=== PATIENT | male | born 1940 | race Caucasian/White ===

== ENCOUNTER 2016-10-20 10:58 | Inpatient (IN) | payer MEDICARE, BC ==
[~2016-10-20] VITALS: Ht 182.9 cm; Wt 120.0 kg
[2016-10-20] VITALS (7 sets, daily range): BP systolic 133–174; BP diastolic 75–108; PULSE 68–83; RESP 15–26; TEMP 97.6–97.9; O2SAT 96–98
[~2016-10-20 10:58] MED LIST: ALBU6.7H INH; AMLO2.5T PO; ASPI81TA82 PO; ATEN-102 PO; COUM7.5T PO; CYCL-36 PO; DIAZ5 PO; FELO10TA PO; FINA5TAB77 PO; LISI-357 PO; SIMV40TA PO; TERA5 PO; TEST-25 IM
[2016-10-20 11:39] LABS: AUTOMATED NEUTROPHIL # 10.2 TH/MM3 (1.8-7.7); BASOPHIL # 0.1 TH/MM3 (0-0.2); BASOPHIL % 0.5 % (0.0-2.0); EOSINOPHIL # 0.2 TH/MM3 (0-0.4); EOSINOPHIL % 1.8 % (0.0-4.0); HEMATOCRIT 48.8 % (39.0-51.0); HEMO FLAGS DIFF FINAL; LYMPH % 11.8 % (9.0-44.0); LYMPHOCYTE # 1.5 TH/MM3 (1.0-4.8); MEAN CELL VOLUME 86.7 FL (80.0-100.0); MEAN CORPUSCULAR HEMOGLOBIN 29.3 PG (27.0-34.0); MEAN CORPUSCULAR HGB CONC 33.8 % (32.0-36.0); MONO % 8.2 % (0.0-8.0); NEUT % 77.7 % (16.0-70.0); PLATELET COUNT 160 TH/MM3 (150-450); RED BLOOD COUNT 5.63 MIL/MM3 (4.50-5.90); RED CELL DISTRIBUTION WIDTH 15.6 % (11.6-17.2); WHITE BLOOD COUNT 13.1 TH/MM3 (4.0-11.0)
[2016-10-20 11:48] LABS: APTT (PATIENT) 37.8 SEC (24.3-30.1); INTERNATIONAL NORMALIZED RATIO 2.1 RATIO; PROTHROMBIN TIME - PATIENT 24.1 SEC (9.8-11.6)
[2016-10-20 12:08] LABS: ANION GAP 8 MEQ/L (5-15); BICARBONATE 28.2 MEQ/L (21.0-32.0); BLOOD UREA NITROGEN 21 MG/DL (7-18); CHLORIDE 106 MEQ/L (98-107); GLOMERULAR FILTRATION RATE 32 ML/MIN (>89); POTASSIUM 3.7 MEQ/L (3.5-5.1); SODIUM (NA) 142 MEQ/L (136-145)
[2016-10-20 12:12] LABS: CREATINE KINASE 56 U/L (39-308)
--- NOTE | 2016-10-20 12:32 | PD ---
HPI Chief Complaint: Chest Pain Time Seen by Provider: 12:28 Travel History International Travel<30 days: No Contact w/Intl Traveler<30days: No Traveled to known affect area: No History of Present Illness HPI 76-year-old male with history of CAD with stents, CHF, A. fib, currently in cardiac rehabilitation with Dr. Leija, presents to the ER today for right sided and substernal chest pain starting yesterday, with radiation down to the left arm, and patient's states that he has been having some dyspnea on exertion for several days. They had gone to cardiac rehabilitation today and told the staff about the symptoms and was told to come to the ER. He denies any abdominal pains, nausea, vomiting, or other symptoms. also states patient has had a 5 pound weight gain recently. Modifying Factors: None Associated Signs & Symptoms: Shortness of breath, dyspnea on exertion, chest pain Risk Factors: CHF PFSH Past Medical History Arthritis: Yes Asthma: Yes Atrial Fibrillation: Yes Autoimmune Disease: No Heart Rhythm Problems: Yes (AFIB ) Cancer: No Cardiac Catheterization: No High Cholesterol: Yes Chemotherapy: No Chest Pain: Yes COPD: Yes Diabetes: No GERD: Yes Hypertension: Yes Implanted Vascular Access Dvce: Yes Psychiatric: No Reproductive: No Respiratory: Yes (BENIGN MASS IN LUNG PER PT.) Radiation Therapy: No Sleep Apnea: Yes Thyroid Disease: No Past Surgical History Abdominal Surgery: Yes (STOMACH FOR REFLUX) Body Medical Devices: STENTS Cholecystectomy: No Genitourinary Surgery: Yes (KIDNEY REMOVED FROM LEFT SIDE ) Neurologic Surgery: Yes (CATARACTS REMOVED ) Tonsillectomy: No Social History Alcohol Use: Yes (1 DRINK A MONTH) Tobacco Use: No Substance Use: No Allergies-Medications (Allergen,Severity, Reaction): Coded Allergies: Dilaudid (Verified Allergy, Severe, vomit, 10/20/16) Erythrocin (Verified Adverse Reaction, Unknown, NAUSEA, 10/20/16) Percodan (Verified Adverse Reaction, Unknown, NAUSEA, 10/20/16) Talwin (Verified Adverse Reaction, Unknown, NAUSEA, 10/20/16) Reported Meds & Prescriptions Reported Meds & Active Scripts Active Reported Nitroglycerin SL (Nitroglycerin) 0.4 Mg Subl 0.4 Mg SL DIRECTED PRN ONE TABLET UNDER THE TONGUE NEEDED FOR CHEST PAIN, MAY REPEAT EVERY FIVE MINUTES FOR A TOTAL OF 3 DOSES OR CALL 911 IF NO RELIEF Vicodin (Hydrocodone-Acetaminophen) 5-300 Mg Tab 1 Tab PO Q4H PRN Vitamin D3 (Cholecalciferol) 1,000 Unit Cap 1,000 Units PO HS Flomax (Tamsulosin HCl) 0.4 Mg Cap 0.4 Mg PO HS Lasix (Furosemide) 20 Mg Tab 40 Mg PO DAILY Omeprazole 20 Mg Tab 20 Mg PO HS Felodipine ER (Felodipine) 10 mg Galdino 10 Mg PO HS Testosterone (Testosterone (Bulk)) 1 Pow Pow 1 IM [id number] Terazosin (Terazosin HCl) 5 Mg Cap 5 Mg PO HS Simvastatin 40 Mg Tab 20 Mg PO HS Lisinopril 5 Mg Tab 20 Mg PO HS Proscar (Finasteride) 5 Mg Tab 5 Mg PO HS Do not crush. Warfarin 7.5 Mg Tab 7.5 Mg PO DIRECTED Warfarin 5 Mg Tab 5 Mg PO DIRECTED Diazepam 5 Mg Tab 5 Mg PO HS PRN Atenolol 50 Mg Tab 50 Mg PO HS Amlodipine (Amlodipine Besylate) 5 Mg Tab 5 Mg PO HS Aspir-81 (Aspirin) 81 Mg Tabdr 81 Mg PO HS Phenergan (Promethazine HCl) 25 Mg Tab 25 Mg PO Q6HR PRN Review of Systems Except as stated in HPI: all other systems reviewed are Neg Physical Exam Narrative GENERAL: Well-nourished, well-developed elderly white male patient in no acute distress at rest. Awake and oriented 3. SKIN: Warm and dry. HEAD: Normocephalic. EYES: No scleral icterus. No injection or drainage. NECK: Supple, trachea midline. CARDIOVASCULAR: Irregularly irregular. RESPIRATORY: Breath sounds equal bilaterally, decreased at the bases. No accessory muscle use. GASTROINTESTINAL: Abdomen soft, non-tender, nondistended. MUSCULOSKELETAL: No cyanosis, or edema. BACK: Nontender without obvious deformity. No CVA tenderness. Data Data Last Documented VS Vital Signs Date Time Temp Pulse Resp B/P Pulse Ox O2 Delivery O2 Flow Rate FiO2 10/20/16 14:54 80 24 159/108 Nasal Cannula 2.0 10/20/16 12:32 96 10/20/16 10:59 97.9 Orders Electrocardiogram (10/20/16 11:05) Complete Blood Count With Diff (10/20/16 11:05) Basic Metabolic Panel (Bmp) (10/20/16 11:05) Ckmb (Isoenzyme) Profile (10/20/16 11:05) Troponin I (10/20/16 11:05) Prothrombin Time / Inr (Pt) (10/20/16 11:28) Act Partial Throm Time (Ptt) (10/20/16 11:28) B-Type Natriuretic Peptide (10/20/16 12:28) Chest, Single Ap (10/20/16 12:28) Furosemide Inj (Lasix Inj) (10/20/16 13:30) Labs Laboratory Tests Test 10/20/16 10/20/16 10/20/16 11:12 11:21 12:40 White Blood Count 13.1 TH/MM3 Red Blood Count 5.63 MIL/MM3 Hemoglobin 16.5 GM/DL Hematocrit 48.8 % Mean Corpuscular Volume 86.7 FL Mean Corpuscular Hemoglobin 29.3 PG Mean Corpuscular Hemoglobin 33.8 % Concent Red Cell Distribution Width 15.6 % Platelet Count 160 TH/MM3 Mean Platelet Volume 10.7 FL Neutrophils (%) (Auto) 77.7 % Lymphocytes (%) (Auto) 11.8 % Monocytes (%) (Auto) 8.2 % Eosinophils (%) (Auto) 1.8 % Basophils (%) (Auto) 0.5 % Neutrophils # (Auto) 10.2 TH/MM3 Lymphocytes # (Auto) 1.5 TH/MM3 Monocytes # (Auto) 1.1 TH/MM3 Eosinophils # (Auto) 0.2 TH/MM3 Basophils # (Auto) 0.1 TH/MM3 CBC Comment DIFF FINAL Differential Comment Sodium Level 142 MEQ/L Potassium Level 3.7 MEQ/L Chloride Level 106 MEQ/L Carbon Dioxide Level 28.2 MEQ/L Anion Gap 8 MEQ/L Blood Urea Nitrogen 21 MG/DL Creatinine 2.03 MG/DL Estimat Glomerular Filtration 32 ML/MIN Rate Random Glucose 92 MG/DL Calcium Level 8.2 MG/DL Total Creatine Kinase 56 U/L Troponin I LESS THAN 0.02 NG/ML Prothrombin Time 24.1 SEC Prothromb Time International 2.1 RATIO Ratio Activated Partial 37.8 SEC Thromboplast Time B-Type Natriuretic Peptide 185 PG/ML MDM Medical Decision Making Medical Screen Exam Complete: Yes Emergency Medical Condition: Yes Medical Record Reviewed: Yes Interpretation(s) EKG shows A. fib at a rate of 80 bpm. No signs of acute ST-T changes. Laboratory Tests Test 10/20/16 10/20/16 10/20/16 11:12 11:21 12:40 White Blood Count 13.1 TH/MM3 (4.0-11.0) Neutrophils (%) (Auto) 77.7 % (16.0-70.0) Monocytes (%) (Auto) 8.2 % (0.0-8.0) Neutrophils # (Auto) 10.2 TH/MM3 (1.8-7.7) Monocytes # (Auto) 1.1 TH/MM3 (0-0.9) Blood Urea Nitrogen 21 MG/DL (7-18) Creatinine 2.03 MG/DL (0.60-1.30) Estimat Glomerular Filtration 32 ML/MIN (>89) Rate Calcium Level 8.2 MG/DL (8.5-10.1) Troponin I LESS THAN 0.02 NG/ML (0.02-0.05) Prothrombin Time 24.1 SEC (9.8-11.6) Activated Partial 37.8 SEC Thromboplast Time (24.3-30.1) B-Type Natriuretic Peptide 185 PG/ML (0-100) Last 24 hours Impressions Chest X-Ray 10/20/16 1228 Signed Impressions: Service Date/Time: Thursday, October 20, 2016 12:48 - CONCLUSION: Compensated cardiomegaly otherwise negative. Ezio Martinez MD FACR Differential Diagnosis Dyspnea on exertion, chest painsACS versus pneumonia versus CHF Narrative Course EKG did not show any signs of ST changes. Cardiac enzymes are negative. Patient was given Lasix in the ER for his symptoms. BNP is not significantly elevated. Chest x-ray did not show any signs of acute pulmonary processes. At this point, considering cardiac history, my plan would be to admit him for further evaluation. Case was discussed with Dr. Givens for admission. Diagnosis Primary Impression: Chest pain Admitting Information Admitting Physician Requests: it Best Valenzuela MD Oct 20, 2016 12:32
[2016-10-20] MEDS ORDERED: WARF-21 PO (12:59)
[2016-10-20] MEDS ORDERED: ASPI81TA81 PO (12:59)
[2016-10-20] MEDS ORDERED: DIAZ5TAB PO (12:59)
[2016-10-20] MEDS ORDERED: FURO1TAB62 PO (12:59)
[2016-10-20] MEDS ORDERED: LISI-519 PO (12:59)
[2016-10-20] MEDS ORDERED: TEST-55 IM (12:59)
[2016-10-20] MEDS ORDERED: AMLO5TAB2 PO (12:59)
[2016-10-20] MEDS ORDERED: TERA5CAP3 PO (12:59)
[2016-10-20] MEDS ORDERED: SIMV40TA PO (12:59)
[2016-10-20] MEDS ORDERED: OMEP20TA PO (12:59)
[2016-10-20] MEDS ORDERED: PROS5TAB PO (12:59)
[2016-10-20] MEDS ORDERED: WARF-23 PO (12:59)
[2016-10-20] MEDS ORDERED: ATEN50TA PO (12:59)
[2016-10-20] MEDS ORDERED: FELO10TA PO (12:59)
--- NOTE | 2016-10-20 13:14 | RADRPT ---
EXAM DATE/TIME: 10/20/2016 12:48 [facility] COMPARISON: CHEST SINGLE AP, January 03, 2014, 7:57. INDICATIONS : Chest pain. MEDICAL HISTORY : Congestive heart failure. SURGICAL HISTORY : Coronary artery stent. cholecystectomy,. left kidney removed ENCOUNTER: Initial ACUITY: 3 days PAIN SCORE: 2/10 LOCATION: Bilateral chest FINDINGS: The lungs are clear. The heart is minimally enlarged. The pulmonary vascularity is normal. There is n o evidence for infiltrate or failure. The portion of the bony skeleton visualized is unremarkable. CONCLUSION: Compensated cardiomegaly otherwise negative. Ezio Martinez MD FACR on October 20, 2016 at 13:12 Board Certified Radiologist. This report was verified electronically.
[2016-10-20] MEDS ORDERED: FUROSEMIDE 40 MG/4 ML VIAL IV PUSH ONE (13:30)
[2016-10-20] MEDS ORDERED: HYDR-3111 PO (14:54)
[2016-10-20] MEDS ORDERED: VITA100036 PO (14:54)
[2016-10-20] MEDS ORDERED: PROM25TA5 PO (14:54)
[2016-10-20] MEDS ORDERED: NITR1SUB3 SL (14:54)
[2016-10-20] MEDS ORDERED: TAMS5CAP PO (14:54)
[2016-10-20] MEDS ORDERED: SODIUM CHLORIDE 0.9% FLUSH 5 ML FLUSH FLUSH PRN (15:30)
[2016-10-20] MEDS ORDERED: NITROGLYCERIN 0.4 MG SL 25 TABS/BTL SL PRN (15:30)
[2016-10-20] MEDS ORDERED: ACETAMINOPHEN 325 MG TAB PO PRN (15:30)
[2016-10-20] MEDS ORDERED: NALOXONE HCL 0.4 MG/ML AMP IV PRN (15:30)
[2016-10-20] MEDS ORDERED: ACETAMINOPHEN/HYDROcodone 325 MG/5 MG TAB PO PRN ×2 (15:30→19:15)
[2016-10-20] MEDS ORDERED: ONDANSETRON HCL 4 MG/2 ML VIAL IVP PRN (15:30)
[2016-10-20 18:14] LABS: CREATINE KINASE 65 U/L (39-308)
[2016-10-20] MEDS: SODIUM CHLORIDE 0.9% FLUSH 5 ML FLUSH FLUSH SCH (19:40)
[2016-10-20] MEDS: MORPHINE SULFATE 4 MG/ML INJ IV PUSH PRN ×2 (19:40→22:54)
[2016-10-20] MEDS ORDERED: FELODIPINE 10 MG PO SCH (21:00)
[2016-10-20] MEDS: PRAVASTATIN SOD 40 MG TAB PO SCH (21:23)
[2016-10-20] MEDS: FINASTERIDE 5 MG TAB PO SCH (21:23)
[2016-10-20] MEDS: TAMSULOSIN HCL 0.4 MG CAP PO SCH (21:23)
[2016-10-20] MEDS: ATENOLOL 50 MG TAB PO SCH (21:23)
[2016-10-20] MEDS: LISINOPRIL 20 MG TAB PO SCH (21:23)
[2016-10-20] MEDS: amLODIPine BESYLATE 5 MG TAB PO SCH (21:23)
[2016-10-20] MEDS: CHOLECALCIFEROL (VIT D3) 1000 UNIT TAB PO SCH (21:23)
[2016-10-20] MEDS: PANTOPRAZOLE SOD 20 MG DELAYED RELEASE TAB PO SCH (21:23)
[2016-10-20] MEDS: TERAZOSIN HCL 5 MG CAP PO SCH (21:23)
[2016-10-20] MEDS: ASPIRIN EC 81 MG TABEC PO SCH (21:23)
--- NOTE | 2016-10-20 21:57 | HP.UPD ---
H&P Update Note This is a 76 old gentleman who sees pharmaceutical engineer Dr. Leija.He was seen And examined by the undersigned Today in room G 79 He came into the emergency department at [facility] with chest discomfort centered around the back of his right chest and radiating to his left upper extremity. He has a history of diabetes and coronary stenting. He was placed on observation. Serial cardiac enzymes are ordered. His pharmaceutical engineer is consulted. His home medications are continued. Full history and physical to follow from nurse practitioner Ronnie Givens MD Oct 20, 2016 21:55
[2016-10-20] MEDS: DIAZEPAM 5 MG TAB PO PRN (22:54)
[2016-10-21] VITALS (8 sets, daily range): BP systolic 105–136; BP diastolic 68–98; PULSE 60–83; RESP 16–20; TEMP 96–98.7; O2SAT 94–99
[2016-10-21 01:07] LABS: CREATINE KINASE 60 U/L (39-308)
[2016-10-21] MEDS: PROMETHAZINE HCL 25 MG TAB PO PRN ×2 (03:30→17:03)
[2016-10-21 07:37] LABS: AUTOMATED NEUTROPHIL # 9.1 TH/MM3 (1.8-7.7); BASOPHIL % 0.4 % (0.0-2.0); EOSINOPHIL # 0.1 TH/MM3 (0-0.4); EOSINOPHIL % 0.9 % (0.0-4.0); HEMATOCRIT 48.7 % (39.0-51.0); HEMO FLAGS DIFF FINAL; LYMPH % 9.8 % (9.0-44.0); LYMPHOCYTE # 1.1 TH/MM3 (1.0-4.8); MEAN CELL VOLUME 87.7 FL (80.0-100.0); MEAN CORPUSCULAR HEMOGLOBIN 29.2 PG (27.0-34.0); MEAN CORPUSCULAR HGB CONC 33.3 % (32.0-36.0); MONO % 4.9 % (0.0-8.0); PLATELET COUNT 154 TH/MM3 (150-450); RED BLOOD COUNT 5.55 MIL/MM3 (4.50-5.90); WHITE BLOOD COUNT 10.8 TH/MM3 (4.0-11.0)
[2016-10-21 08:00] LABS: BICARBONATE 33.7 MEQ/L (21.0-32.0); POTASSIUM 4.1 MEQ/L (3.5-5.1)
--- NOTE | 2016-10-21 08:25 | HHI.PR ---
Subjective Subjective Remarks mild chest discomfort slept poorly no sob no fever tired tele-afib Review of Systems Constitutional Constitutional Remarks 12 point ROS completed, negative except as noted above Vitals/Results Intake & Output 10/20/16 10/20/16 10/21/16 15:00 23:00 07:00 Output Total 425 ml 1600 ml 300 ml Balance -425 ml -1600 ml -300 ml Output Urine Total 425 ml 1600 ml 300 ml # Voids 1 3 Vital Signs Vital Signs Date Time Temp Pulse Resp B/P Pulse Ox O2 Delivery O2 Flow Rate FiO2 10/21/16 06:12 97.7 65 20 111/74 94 10/21/16 01:12 83 10/21/16 00:21 97.7 66 20 105/68 96 10/20/16 23:36 16 10/20/16 18:55 97.6 68 20 144/75 98 10/20/16 18:15 75 20 155/93 96 Nasal Cannula 2.0 10/20/16 18:15 20 10/20/16 18:07 78 15 174/107 Nasal Cannula 2.0 10/20/16 18:04 24 10/20/16 14:54 80 24 159/108 Nasal Cannula 2.0 10/20/16 13:00 76 16 152/107 97 Nasal Cannula 2.0 10/20/16 13:00 Nasal Cannula 2.0 10/20/16 12:32 73 26 168/98 96 Room Air 10/20/16 10:59 97.9 83 16 133/89 96 CBC/BMP: 10/21/16 0629 10/21/16 0629 Lab Results Laboratory Tests Test 10/20/16 10/20/16 10/20/16 10/20/16 11:12 11:21 12:40 17:10 White Blood Count 13.1 TH/MM3 Red Blood Count 5.63 MIL/MM3 Hemoglobin 16.5 GM/DL Hematocrit 48.8 % Mean Corpuscular Volume 86.7 FL Mean Corpuscular Hemoglobin 29.3 PG Mean Corpuscular Hemoglobin 33.8 % Concent Red Cell Distribution Width 15.6 % Platelet Count 160 TH/MM3 Mean Platelet Volume 10.7 FL Neutrophils (%) (Auto) 77.7 % Lymphocytes (%) (Auto) 11.8 % Monocytes (%) (Auto) 8.2 % Eosinophils (%) (Auto) 1.8 % Basophils (%) (Auto) 0.5 % Neutrophils # (Auto) 10.2 TH/MM3 Lymphocytes # (Auto) 1.5 TH/MM3 Monocytes # (Auto) 1.1 TH/MM3 Eosinophils # (Auto) 0.2 TH/MM3 Basophils # (Auto) 0.1 TH/MM3 CBC Comment DIFF FINAL Differential Comment Sodium Level 142 MEQ/L Potassium Level 3.7 MEQ/L Chloride Level 106 MEQ/L Carbon Dioxide Level 28.2 MEQ/L Anion Gap 8 MEQ/L Blood Urea Nitrogen 21 MG/DL Creatinine 2.03 MG/DL Estimat Glomerular Filtration 32 ML/MIN Rate Random Glucose 92 MG/DL Calcium Level 8.2 MG/DL Total Creatine Kinase 56 U/L 65 U/L Troponin I LESS THAN 0.02 LESS THAN 0.02 NG/ML NG/ML Prothrombin Time 24.1 SEC Prothromb Time International 2.1 RATIO Ratio Activated Partial 37.8 SEC Thromboplast Time B-Type Natriuretic Peptide 185 PG/ML Test 10/20/16 10/21/16 23:40 06:29 Total Creatine Kinase 60 U/L Troponin I LESS THAN 0.02 NG/ML White Blood Count 10.8 TH/MM3 Red Blood Count 5.55 MIL/MM3 Hemoglobin 16.2 GM/DL Hematocrit 48.7 % Mean Corpuscular Volume 87.7 FL Mean Corpuscular Hemoglobin 29.2 PG Mean Corpuscular Hemoglobin 33.3 % Concent Red Cell Distribution Width 15.0 % Platelet Count 154 TH/MM3 Mean Platelet Volume 11.0 FL Neutrophils (%) (Auto) 84.0 % Lymphocytes (%) (Auto) 9.8 % Monocytes (%) (Auto) 4.9 % Eosinophils (%) (Auto) 0.9 % Basophils (%) (Auto) 0.4 % Neutrophils # (Auto) 9.1 TH/MM3 Lymphocytes # (Auto) 1.1 TH/MM3 Monocytes # (Auto) 0.5 TH/MM3 Eosinophils # (Auto) 0.1 TH/MM3 Basophils # (Auto) 0.0 TH/MM3 CBC Comment DIFF FINAL Differential Comment Sodium Level 142 MEQ/L Potassium Level 4.1 MEQ/L Chloride Level 103 MEQ/L Carbon Dioxide Level 33.7 MEQ/L Anion Gap 5 MEQ/L Blood Urea Nitrogen 21 MG/DL Creatinine 1.98 MG/DL Estimat Glomerular Filtration 33 ML/MIN Rate Random Glucose 113 MG/DL Calcium Level 8.6 MG/DL Physical Exam General General Appearance: Well Developed, Well Nourished, No Acute Distress, Comfortable Eyes Eye Exam: Pupils Equal, Pupils Reactive Ears & Nose Ears & Nose Exam: Nasal Mucosa Holloway Throat Throat Exam: Oral Mucosa Holloway & Moist Neck Neck Exam: Neck Supple, Trachea Midline Pulmonary Resp Exam: Clear Bilaterally, No Distress Cardiology CV Exam: Irregular, Arrhythmia Gastrointestinal/Abdomen GI Exam: Soft, Non-Tender, Bowel Sounds Present, Non-Distended Musculoskeletal MS Exam: Joints Intact Integumentary Skin Exam: Warm, Dry Extremeties Extremities Exam: No Edema, Pedal Pulses Palpable Neurologic Neuro Exam: Alert, Awake, Oriented, Speech Clear, Moving All Extremities, No Focal Deficits Psychiatric Psych Exam: Appropriate Responses VTE Prophylaxis VTE Prophylaxis Meds: Coumadin PUD Prophylasis PUD Prophylaxis: Protonix Assessment/Plan Problem List: (1) Coronary artery disease (2) Atrial fibrillation (3) Benign prostatic hypertrophy (4) Hyperlipidemia (5) Chronic obstructive pulmonary disease (6) Chest pain (7) Hypertension (8) Obstructive sleep apnea on CPAP (9) History of placement of stent in LAD coronary artery (10) Acute kidney injury superimposed on chronic kidney disease Assessment/Plan cardiac enzymes x 3 negative continue with ASA/BB/Statin cardiology consult pending continue Coumadin INR daily Duonebs PRN PT eval and tx monitor renal function, creat inc BMP in am wait for card input labs reviewed continue with coumadin for DVT prophylaxis PPI for GI prophylaxis D/W RN D/W Dr. Givens D/W pt This patient was seen by myself and Dr. Givens, this note is written on his behalf. Problem Qualifiers (1) Coronary artery disease: Qualified Code: I25.10 - Coronary artery disease involving north fork coronary artery of north fork heart without angina pectoris (2) Atrial fibrillation: Qualified Code: I48.2 - Chronic atrial fibrillation (3) Benign prostatic hypertrophy: (4) Hyperlipidemia: Qualified Code: E78.5 - Hyperlipidemia, unspecified hyperlipidemia type (5) Chronic obstructive pulmonary disease: Qualified Code: J44.9 - Chronic obstructive pulmonary disease, unspecified COPD type (6) Chest pain: Qualified Code: R07.9 - Chest pain, unspecified type (7) Hypertension: Qualified Code: I10 - Essential hypertension Flakita [place]a Oct 21, 2016 08:25
[2016-10-21] MEDS ORDERED: RESP: ALBUTEROL 2.5 MG/IPRATROPIUM 0.5 MG NEB (PRN) NEB (08:30)
--- NOTE | 2016-10-21 08:57 | MH ---
cc: JASON LONGORIA MD DATE OF : 1940 DATE OF ADMISSION: 10/20/2016 CHIEF COMPLAINT: Chest pain. 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 The patient's original home is in [place], and he and his do come down here every year for the winter months. Last night when he went to bed he noticed some chest pain, mid sternal, radiating over to the right side of the chest. He did have pain down in his left arm with a numb tingling feeling around the left elbow area. He did have some mild shortness of breath and some mild nausea but he states this pain went away after about 30 minutes. He did not tell his . This morning he got up to go to rehab and on arrival to the rehab facility, the patient's vital signs were checked and he told them that he was having some chest pain again. He was then sent to the emergency room for evaluation. The patient's pain has waxed and waned all through the day but it has never completely gone away. He still describes it as a mid sternal right-sided chest pain that radiates down into the left arm around the left elbow area. He does describe some shortness of breath and some mild nausea but no vomiting. He complains of no headache currently but states the night before last he did have a headache which was very unusual for him. The patient has had approximately a five pound weight gain recently. This is according to his . She is his historian and helps him with his history. The patient has no fever, chills, abdominal pain. The patient has been in multiple facilities chiefly for his coronary artery disease and has brought the records to the hospital with her. He does have a significant history of atrial fibrillation, coronary artery disease. He does take Coumadin, aspirin. He has COPD with obstructive sleep apnea and uses CPAP at night. PAST MEDICAL HISTORY: 1. Arthritis. 2. Asthma. 3. COPD. 4. Atrial fibrillation. 5. Coronary artery disease. 6. Cardiovascular disease. 7. Hyperlipidemia. 8. History of chest pain. 9. COPD. 10. GERD. 11. Hypertension. 12. Obstructive sleep apnea. PAST SURGICAL HISTORY: 1. Abdominal surgery for reflux. 2. Cardiac stents. 3. Left kidney removed. 4. Left nephrectomy. 5. Cataracts. 6. Benign mass in his lung. ALLERGIES: DILAUDID, ERYTHROMYCIN KANU A[place]ON REPORTED MEDICATIONS: 1. Nitroglycerin sublingual. 2. Vicodin. 3. Vitamin D3. 4. Flomax. 5. Lasix. 6. Omeprazole. 7. Felodipine ER. 8. Testosterone. 9. Terazosin. 10. Simvastatin. 11. Lisinopril 12. Proscar. 13. Warfarin. 14. Valium. 15. Atenolol. 16. Amlodipine 17. Aspirin 18. Phenergan SOCIAL HISTORY: The patient is , currently lives with his . He has no current tobacco use. ETOH social, occasional. Some beer weekly and/or at least a drink a month. No illicit drug use. FAMILY HISTORY: Heart disease. REVIEW OF SYSTEMS: A 12 point review of systems was obtained, positives noted are chest pain, shortness of breath, nausea. All other systems are negative or unremarkable. PHYSICAL EXAMINATION: Obese, well-developed, well-nourished elderly white male looks to be his stated age, resting in bed with mild dyspnea noted. He is alert, oriented x4, fairly good historian. SKIN: Philip, warm and dry. HEENT: Atraumatic, normocephalic. No scleral icterus. Trachea is midline. PERRLA 2. NECK: Thick, short and supple. CARDIOVASCULAR: Irregular rhythm. Normal rate. Distant heart sounds. No murmurs, rubs, or gallops appreciated. He has no edema in his legs and pulses are intact. RESPIRATORY: Breath sounds are equal bilaterally without wheezes or rhonchi. He does have some diminished sounds in his mid to lower base, low air volume. GASTROINTESTINAL: Abdomen is obese, round, soft, non-tender, non-distended. Active bowel sounds in all four quadrants. MUSCULOSKELETAL: He moves all extremities with purpose. 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 NEUROLOGIC: Alert, oriented, speech is clear. PSYCHIATRIC: Appropriate mood and affect. Judgment is clear. DIAGNOSTIC DATA WBC count 13.1, RBC 5.63, hemoglobin 16.5, hematocrit 48.8, platelet count 160. Neutrophil auto count 77.7, mono auto count 8.2. PT/INR is 2.1. Chemistry: Sodium is 142, potassium 3.7, chloride 106, carbon dioxide 28.2, anion gap 8. BUN 21, creatinine 2.03. GFR 32, random glucose 92, calcium is 8.2. Troponin is less than 0.02. Total creatine kinase 56, BNP 185. IMAGING STUDIES: Chest x-ray with cardiomegaly. Pulmonary vascularity is normal. No evidence of infiltrates or failure. ASSESSMENT AND PLAN: Chest pain, rule out MD/cardiac event. Leukocytosis mild. Unknown cause. Chronic kidney disease, stage III. Cardiovascular disease with cardiomegaly. Atrial fibrillation. Hyperlipidemia. COPD. Obstructive sleep apnea. The plan is to admit for observation and rule out MD. The patient does have a significant history. We will monitor his vital signs, reconcile his medications. Continue his Coumadin. He can be out of bed with assistance, heart healthy diet. Pain management acute or chronic. Will monitor his lab levels. In the ER he had one dose of Lasix 40 IV with a 1300 urine output noted at one time. We will go ahead and consult cardiology for their expert opinion. DVT prophylaxis with Coumadin and aspirin, SCDs, PUD prophylaxis with Protonix. The patient is full code, full aggressive care. We will follow. Dictated by: ILYA Gonzalez MD JESI Pereira/JESI /5:03 PM /8:57 AM
[2016-10-21] MEDS: FUROSEMIDE 20 MG TAB PO SCH (09:01)
[2016-10-21] MEDS: SODIUM CHLORIDE 0.9% FLUSH 5 ML FLUSH FLUSH SCH ×2 (09:02→22:42)
--- NOTE | 2016-10-21 13:27 | PD.CONS ---
[facility] Service Cardiology Consult Requested By Reason for Consult Chest Pain Primary Care Physician Rolando Queen MD History of Present Illness 76 y/o M with extensive cardiac history admitted with complaints of chest pain. PMHx significant for CAD s/p PCI, diastolic dysfunction, atrial fibrillation on chronic oral anticoagulation, HTN, obesity, CKD and COPD on CPAP at home. He reports that 2 days ago had chest pain at night, that radiating to the back and left arm associated with hand numbness however he did not seek medical assistance because pain went away by itself. Next morning he had another episode of chest pain took a nitro SL and went to cardiac rehab. While in rehab he had another episode associated with SOB. He was then sent to the emergency room via EMS for evaluation. He reports being compliant with medication therapy and medical appointments. He denies inappropriate salt intake, weight again, fever, chills, abd pain, leg edema or PND. He state pain goes away partially with nitro but oxycodone resolves it. He had a similar episode in August 2016 in [place], was discharge after negative cardiac work up. Of note last PCI/CAMILA was placed on March 2016 per patient chest pain NEVER went away. DAPT was discontinued after 3 months. Review of Systems Consitutional: DENIES: Fatigue, Fever, Chills, Weight gain, Weight loss Eyes: DENIES: Amaurosis Fugax, Change in vision HEENT: DENIES: Lightheadedness, Change in hearing Cardiovascular: COMPLAINS OF: See HPI, Chest pain Gastrointestinal: DENIES: Nausea, Vomiting, Change in bowel habits, Reflux, Bloody stools, Melena Genitourinary: DENIES: Urinary incontinence, Difficulty voiding Integumentary: DENIES: Rash Neurologic: DENIES: Tingling or numbness, Memory problems, Poor Balance, Stroke symptoms Musculoskeletal: DENIES: Joint pain, Muscle pain, Limited range of motion, Back pain Psychiatric: DENIES: Anxiety, Depression, Sleep disturbances Hematologic: DENIES: Bruising tendencies, Bleeding tendencies Endocrine: DENIES: Weight gain, Weight loss, Thyroid disease Past Family Social History Allergies: Coded Allergies: Dilaudid (Verified Allergy, Severe, vomit, 10/20/16) Erythrocin (Verified Adverse Reaction, Unknown, NAUSEA, 10/20/16) Percodan (Verified Adverse Reaction, Unknown, NAUSEA, 10/20/16) Talwin (Verified Adverse Reaction, Unknown, NAUSEA, 10/20/16) Past Medical History 1. Arthritis. 2. Asthma. 3. COPD. 4. Atrial fibrillation. 5. Coronary artery disease. 6. Cardiovascular disease. 7. Hyperlipidemia. 8. History of chest pain. 9. COPD. 10. GERD. 11. Hypertension. 12. Obstructive sleep apnea. Past Surgical History 1. Abdominal surgery for reflux. 2. Cardiac stents. 3. Left kidney removed. 4. Left nephrectomy. 5. Cataracts. 6. Benign mass in his lung. Reported Medications Reported Meds & Active Scripts Active Reported Nitroglycerin SL (Nitroglycerin) 0.4 Mg Subl 0.4 Mg SL DIRECTED PRN ONE TABLET UNDER THE TONGUE NEEDED FOR CHEST PAIN, MAY REPEAT EVERY FIVE MINUTES FOR A TOTAL OF 3 DOSES OR CALL 911 IF NO RELIEF Vicodin (Hydrocodone-Acetaminophen) 5-300 Mg Tab 1 Tab PO Q4H PRN Vitamin D3 (Cholecalciferol) 1,000 Unit Cap 1,000 Units PO HS Flomax (Tamsulosin HCl) 0.4 Mg Cap 0.4 Mg PO HS Lasix (Furosemide) 20 Mg Tab 40 Mg PO DAILY Omeprazole 20 Mg Tab 20 Mg PO HS Felodipine ER (Felodipine) 10 mg Galdino 10 Mg PO HS Testosterone (Testosterone (Bulk)) 1 Pow Pow 1 IM [id number] Terazosin (Terazosin HCl) 5 Mg Cap 5 Mg PO HS Simvastatin 40 Mg Tab 20 Mg PO HS Lisinopril 5 Mg Tab 20 Mg PO HS Proscar (Finasteride) 5 Mg Tab 5 Mg PO HS Do not crush. Warfarin 7.5 Mg Tab 7.5 Mg PO DIRECTED Warfarin 5 Mg Tab 5 Mg PO DIRECTED Diazepam 5 Mg Tab 5 Mg PO HS PRN Atenolol 50 Mg Tab 50 Mg PO HS Amlodipine (Amlodipine Besylate) 5 Mg Tab 5 Mg PO HS Aspir-81 (Aspirin) 81 Mg Tabdr 81 Mg PO HS Phenergan (Promethazine HCl) 25 Mg Tab 25 Mg PO Q6HR PRN Active Ordered Medications Current Medications Medications (Trade) Dose Ordered Sig/Castro Route Start Time Stop Time Status Last Admin (NS Flush) 2 ml UNSCH PRN FLUSH 10/20/16 15:30 (NS Flush) 2 ml BID FLUSH 10/20/16 21:00 10/21/16 09:02 (Tylenol) 650 mg Q4H PRN PO 10/20/16 15:30 (Zofran Inj) 4 mg Q6H PRN IVP 10/20/16 15:30 10/21/16 00:34 (Narcan Inj) 0.4 mg UNSCH PRN IV 10/20/16 15:30 (Norvasc) 5 mg HS PO 10/20/16 21:00 10/20/16 21:23 (Ecotrin Ec) 81 mg HS PO 10/20/16 21:00 10/20/16 21:23 (Tenormin) 50 mg HS PO 10/20/16 21:00 10/20/16 21:23 (Vitamin D3) 1,000 units HS PO 10/20/16 21:00 10/20/16 21:23 (Valium) 5 mg HS PRN PO 10/20/16 21:00 10/20/16 22:54 (Proscar) 5 mg HS PO 10/20/16 21:00 10/20/16 21:23 (Lasix) 40 mg DAILY PO 10/21/16 09:00 10/21/16 09:01 (Prinivil) 20 mg HS PO 10/20/16 21:00 10/20/16 21:23 (Protonix) 20 mg HS PO 10/20/16 21:00 10/20/16 21:23 (Phenergan) 25 mg Q6HR PRN PO 10/20/16 15:30 10/21/16 03:30 (Flomax) 0.4 mg HS PO 10/20/16 21:00 10/20/16 21:23 (Hytrin) 5 mg HS PO 10/20/16 21:00 10/20/16 21:23 (Coumadin) 5 mg DAILY@1600 PO 10/21/16 16:00 Pravastatin Sodium 40 mg 40 mg HS PO 10/20/16 21:00 10/20/16 21:23 (Coumadin Consult Pharmacy) 0 ml @ 0 mls/hr UNSCH OTHER 10/20/16 15:30 ([place] 5-325 Mg) 1 tab Q4H PRN PO 10/20/16 19:15 (Morphine Inj) 2 mg Q3H PRN IV PUSH 10/20/16 19:15 10/20/16 22:54 (Coumadin Booklet) 1 ONCE ONCE XX 10/21/16 16:00 10/21/16 16:01 ([place] 5-325 Mg) 2 tab Q4H PRN PO 10/21/16 15:30 Family History Noncontributory Physical Exam Vital Signs Vital Signs Date Time Temp Pulse Resp B/P Pulse Ox O2 Delivery O2 Flow Rate FiO2 10/21/16 08:00 96.4 60 16 129/77 96 10/21/16 06:12 97.7 65 20 111/74 94 10/21/16 01:12 83 10/21/16 00:21 97.7 66 20 105/68 96 10/20/16 23:36 16 10/20/16 18:55 97.6 68 20 144/75 98 10/20/16 18:15 75 20 155/93 96 Nasal Cannula 2.0 10/20/16 18:15 20 10/20/16 18:07 78 15 174/107 Nasal Cannula 2.0 10/20/16 18:04 24 10/20/16 14:54 80 24 159/108 Nasal Cannula 2.0 Physical Exam GENERAL: Well-nourished, well-developed patient. SKIN: Warm and dry. HEAD: Normocephalic. Bilateral ear lobe creases EYES: No scleral icterus. No injection or drainage. NECK: Supple, trachea midline. No JVD or lymphadenopathy. CARDIOVASCULAR: Irr Irr without murmurs, gallops, or rubs. CHEST: CHEST PAIN IS REPRODUCIBLE WITH PALPATION RESPIRATORY: Breath sounds equal bilaterally. No accessory muscle use. No wheezing, rales or rhonchi GASTROINTESTINAL: Abdomen obese, soft, non-tender, nondistended. EXTREMITIES: No cyanosis, or edema. Pulses throughout NEUROLOGICAL: Awake, alert, and oriented x 3. Non-focal. Laboratory Laboratory Tests Test 10/20/16 10/20/16 10/21/16 17:10 23:40 06:29 Total Creatine Kinase 65 60 Troponin I LESS THAN 0.02 LESS THAN 0.02 White Blood Count 10.8 Red Blood Count 5.55 Hemoglobin 16.2 Hematocrit 48.7 Mean Corpuscular Volume 87.7 Mean Corpuscular Hemoglobin 29.2 Mean Corpuscular Hemoglobin 33.3 Concent Red Cell Distribution Width 15.0 Platelet Count 154 Mean Platelet Volume 11.0 Neutrophils (%) (Auto) 84.0 Lymphocytes (%) (Auto) 9.8 Monocytes (%) (Auto) 4.9 Eosinophils (%) (Auto) 0.9 Basophils (%) (Auto) 0.4 Neutrophils # (Auto) 9.1 Lymphocytes # (Auto) 1.1 Monocytes # (Auto) 0.5 Eosinophils # (Auto) 0.1 Basophils # (Auto) 0.0 CBC Comment DIFF FINAL Differential Comment Sodium Level 142 Potassium Level 4.1 Chloride Level 103 Carbon Dioxide Level 33.7 Anion Gap 5 Blood Urea Nitrogen 21 Creatinine 1.98 Estimat Glomerular Filtration 33 Rate Random Glucose 113 Calcium Level 8.6 Result Diagram: 10/21/16 0629 10/21/16 0629 Imaging Last Impressions Chest X-Ray 10/20/16 1228 Signed Impressions: Service Date/Time: Thursday, October 20, 2016 12:48 - CONCLUSION: Compensated cardiomegaly otherwise negative. Ezio Martinez MD FACR Assessment and Plan Problem List: (1) Coronary artery disease Assessment and Plan: 76 y/o M with significant CAD s/p PCI, diastolic dysfunction and CKD admitted with complaints of chest pain and sob concerning for ACS vs acute on chronic diastolic heart failure. He remains afebrile and hemodynamically stable. Cardiac markers negative x 3, mildly elevated BNP. EKG atrial fibrillation with adequate ventricular response. He is not optimal medical therapy for ischemia. Responding to IV diuresis. He reports feeling better. Chest pain free however chest pain is reproducible with palpation. Given patient's extensive cardiac hx I think it would be reasonable to pursue myocardial perfusion study to assess for ischemia. Patient is s/p nephrectomy and has CKD stage III risk of ending in HD with LHC/PCI very high. Recommendations: 1. Schedule MPI 2. Cont aggressive medical management for CAD 3. Add Imdur 30mg PO daily 4. Continue IV diuresis 5. Strict I&O 6. Daily weights 7. Cont OAC and rate control for Afib 8. Cont CPAP home settings (2) Atrial fibrillation (3) Hyperlipidemia (4) Chronic obstructive pulmonary disease (5) Hypertension (6) Chronic kidney disease, stage III (moderate) Problem Qualifiers (1) Coronary artery disease: Qualified Code: I25.10 - Coronary artery disease involving [place] coronary artery of [place] heart without angina pectoris (2) Atrial fibrillation: Qualified Code: I48.2 - Chronic atrial fibrillation (3) Hyperlipidemia: Qualified Code: E78.5 - Hyperlipidemia, unspecified hyperlipidemia type (4) Chronic obstructive pulmonary disease: Qualified Code: J44.9 - Chronic obstructive pulmonary disease, unspecified COPD type (5) Hypertension: Qualified Code: I10 - Essential hypertension Trenton Woo MD Oct 21, 2016 13:27
[2016-10-21] MEDS ORDERED: ACETAMINOPHEN/HYDROcodone 325 MG/5 MG TAB PO PRN (15:30)
--- NOTE | 2016-10-21 16:51 | EC ---
Study Study Date:10/21/2016 STUDY CONCLUSIONS SUMMARY - Procedure narrative: Transthoracic echocardiography. Image quality was fair. The study was technically limited due to poor acoustic window availability. - Left ventricle: The cavity size was mildly dilated. Systolic function was moderately reduced. The estimated ejection fraction was in the range of 35% to 40%. If LV function is below 40, please consider prescribing an ACEI or ARB or document rationale for non-use. PROCEDURE DATA STUDY STATUS: Elective. Procedure: Transthoracic echocardiography. Image quality was fair. The study was technically limited due to poor acoustic window availability. Scanning was performed from the parasternal, apical, and subcostal acoustic windows. Study completion: The patient tolerated the procedure well. Transthoracic echocardiography. M-mode, complete 2D, complete spectral Doppler, and color Doppler. Height: Height: 72in. Weight: Weight: 263.5lb. Body mass index: BMI: 35.8kg/m^2. Body surface area: BSA: 2.4m^2. Patient status: Inpatient. CARDIAC ANATOMY LEFT VENTRICLE: The cavity size was mildly dilated. Systolic function was moderately reduced. The estimated ejection fraction was in the range of 35% to 40%. Images were inadequate for LV wall motion assessment. AORTIC VALVE: The valve appears to be grossly normal. Doppler: There was no stenosis. No significant regurgitation. Valve area: 1.11cm^2(VTI). Indexed valve area: 0.46cm^2/m^2 (VTI). Valve area: 1.28cm^2 (Vmax). Indexed valve area: 0.53cm^2/m^2 (Vmax). Mean gradient: 8mm Hg (S). Peak gradient: 13mm Hg (S). MITRAL VALVE: The valve appears to be grossly normal. Doppler: There was no evidence for stenosis. Trace regurgitation. Peak gradient: 4mm Hg (D). PULMONIC VALVE: Not well visualized. Doppler: There was no evidence for stenosis. No significant regurgitation. TRICUSPID VALVE: The valve appears to be grossly normal. Doppler: There was no evidence for stenosis. Trace regurgitation. Patient weight: 263.5lb _Ejection fraction:_ 65-75% _Fractional shortening:_ 32% up to 5Kg 5-11.5Kg 11.6-22.9Kg 23-45Kg 45-57Kg Aortic Root 7-13 <17 13-22 17-27 17-27 LA diam 6-13 <23 24-38 33-47 37-40 RVID 10-17 7-15 7-15 7-18 8-17 LVIDd 12-22 <32 24-38 33-47 37-40 LVPW 2-4 3-6 5-7 6-8 7-8 IVS 2-4 3-6 5-7 6-8 7-8 BASIC MEASUREMENTS ADULT NORMAL Left ventricle LV internal dimension, ED, chordal *56 mm 43-52 level, PLAX LV internal dimension, ES, chordal *48.5 mm 23-38 level, PLAX Fractional shortening, chordal level, *13 % >29 PLAX LV posterior wall thickness, ED 12.9 mm IVS/LVPW ratio, ED 1.01 <1.3 Ventricular septum Septal thickness, ED 13 mm Aortic valve Leaflet separation 17 mm 15-26 Aorta Root diameter, ED 43 mm Left atrium Anterior-posterior dimension 47 mm Anterior-posterior dimension index 1.96 cm/m^2 <2.2 BASIC MEASUREMENTS ADULT NORMAL Aortic valve Leaflet separation 17 mm 15-26 DOPPLER MEASUREMENTS ADULT NORMAL Aortic valve Peak velocity, S 177 cm/s Mean velocity, S 129 cm/s VTI, S 34.5 cm Mean gradient, S 8 mm Hg Peak gradient, S 13 mm Hg Valve area, VTI 1.11 cm^2 Valve area index, VTI 0.46 cm^2/m^2 Valve area, Vmax 1.28 cm^2 Valve area index, Vmax 0.53 cm^2/m^2 Mitral valve Peak E-wave velocity 101 cm/s Deceleration time 210 ms 150-230 Peak gradient, D 4 mm Hg Tricuspid valve Regurgitant peak velocity 195 cm/s Peak RV-RA gradient, S 15 mm Hg Maximal regurgitant velocity 195 cm/s Pulmonic valve Peak velocity, S 109 cm/s LEGEND: Mean values are shown as u=mean value. Asterisk (*) lindsay values outside specified normal range. Prepared and signed by Prabhakar Lemons [id number]
[2016-10-21] MEDS: WARFARIN SOD 5 MG TAB PO SCH (17:04)
[2016-10-21] MEDS: CHOLECALCIFEROL (VIT D3) 1000 UNIT TAB PO SCH (22:43)
[2016-10-21] MEDS: FINASTERIDE 5 MG TAB PO SCH (22:43)
[2016-10-21] MEDS: ASPIRIN EC 81 MG TABEC PO SCH (22:43)
[2016-10-21] MEDS: PANTOPRAZOLE SOD 20 MG DELAYED RELEASE TAB PO SCH (22:43)
[2016-10-21] MEDS: amLODIPine BESYLATE 5 MG TAB PO SCH (22:43)
[2016-10-21] MEDS: DIAZEPAM 5 MG TAB PO PRN (22:43)
[2016-10-21] MEDS: ATENOLOL 50 MG TAB PO SCH (22:43)
[2016-10-21] MEDS: TAMSULOSIN HCL 0.4 MG CAP PO SCH (22:43)
[2016-10-21] MEDS: LISINOPRIL 20 MG TAB PO SCH (22:44)
[2016-10-21] MEDS: TERAZOSIN HCL 5 MG CAP PO SCH (22:44)
[2016-10-21] MEDS: PRAVASTATIN SOD 40 MG TAB PO SCH (22:44)
[2016-10-22] VITALS (7 sets, daily range): BP systolic 117–153; BP diastolic 68–97; PULSE 66–84; RESP 18–21; TEMP 96.4–98.4; O2SAT 93–97
[2016-10-22] MEDS ORDERED: ISOSORBIDE MONONITRATE 30 MG TAB PO SCH (07:00)
--- NOTE | 2016-10-22 07:12 | EKG ---
Date Performed: 10/20/2016 Time Performed: 11:12:16 PTAGE: 76 years EKG: ATRIAL FIBRILLATION WITH ABERRANT CONDUCTION OR VENTRICULAR PREMATURE COMPLEXES BORDERLINE LEFT AXIS DEVIATION ABNORMAL RHYTHM ECG PREVIOUS TRACING : 01/03/2014 07.48 Compared to prior tracing no significant change DOCTOR: Rolando Parsons Interpretating Date/Time 10/22/2016 07:09:19
[2016-10-22 07:46] LABS: PROTHROMBIN TIME - PATIENT 22.5 SEC (9.8-11.6)
--- NOTE | 2016-10-22 08:14 | HHI.PR ---
Subjective Subjective Remarks sharp left sided chest pain mild SOB at times no fever feeling tired doesn't use oxygen at home, only CPAP tele shows afib, HR 40s with occ PVCs Review of Systems Constitutional Constitutional Remarks 12 point ROS completed, negative except as noted above Vitals/Results Intake & Output 10/21/16 10/21/16 10/22/16 15:00 23:00 07:00 Intake Total 800 ml Output Total 0 ml Balance 800 ml Intake Oral 800 ml Stool Total 0 ml # Voids 2 Vital Signs Vital Signs Date Time Temp Pulse Resp B/P Pulse Ox O2 Delivery O2 Flow Rate FiO2 10/22/16 04:10 98.4 68 21 153/89 97 10/21/16 20:23 98.7 78 18 136/98 98 10/21/16 18:36 20 10/21/16 16:00 96.1 69 18 120/73 99 10/21/16 12:00 96.0 66 16 117/82 99 CBC/BMP: 10/21/16 0629 10/21/16 0629 Lab Results Laboratory Tests Test 10/22/16 07:05 Prothrombin Time 22.5 SEC Prothromb Time International 2.0 RATIO Ratio Physical Exam General General Appearance: Well Developed, Well Nourished, No Acute Distress, Comfortable Eyes Eye Exam: Pupils Equal, Pupils Reactive Ears & Nose Ears & Nose Exam: Nasal Mucosa [place] Throat Throat Exam: Oral Mucosa [place] & Moist Neck Neck Exam: Neck Supple, Trachea Midline Pulmonary Resp Exam: Clear Bilaterally, No Distress Cardiology CV Exam: Irregular, Arrhythmia Gastrointestinal/Abdomen GI Exam: Soft, Non-Tender, Bowel Sounds Present, Non-Distended Musculoskeletal MS Exam: Joints Intact Integumentary Skin Exam: Warm, Dry Extremeties Extremities Exam: No Edema, Pedal Pulses Palpable Neurologic Neuro Exam: Alert, Awake, Oriented, Speech Clear, Moving All Extremities, No Focal Deficits Psychiatric Psych Exam: Appropriate Responses VTE Prophylaxis VTE Prophylaxis Meds: Coumadin PUD Prophylasis PUD Prophylaxis: Protonix Assessment/Plan Problem List: (1) Coronary artery disease (2) Atrial fibrillation (3) Benign prostatic hypertrophy (4) Hyperlipidemia (5) Chronic obstructive pulmonary disease (6) Chest pain (7) Hypertension (8) Obstructive sleep apnea on CPAP (9) History of placement of stent in LAD coronary artery (10) Acute kidney injury superimposed on chronic kidney disease (11) Chronic kidney disease, stage III (moderate) (12) History of unilateral nephrectomy (13) Cardiomyopathy Assessment/Plan cardiac enzymes x 3 negative continue with ASA/BB/Statin cardiology input appreciated, started Imdur STT today Echo done EF 35-40, was 40-March continue Coumadin INR daily, 2 today Duonebs PRN CPAP at night PT eval and tx , -OOB to ambulate monitor renal function, creat inc hx nephrectomy BMP in am labs pending continue with coumadin for DVT prophylaxis PPI for GI prophylaxis needs inpatient, pt. not ready for discharge. Risk of cardiogenic shock, poss. . Needs STT, poss. cardiac intervention. Anticipated dc back to home D/W RN D/W Dr. Givens D/W pt This patient was seen by myself and Dr. Givens, this note is written on his behalf. Problem Qualifiers (1) Coronary artery disease: Qualified Code: I25.10 - Coronary artery disease involving [place] coronary artery of [place] heart without angina pectoris (2) Atrial fibrillation: Qualified Code: I48.2 - Chronic atrial fibrillation (3) Benign prostatic hypertrophy: (4) Hyperlipidemia: Qualified Code: E78.5 - Hyperlipidemia, unspecified hyperlipidemia type (5) Chronic obstructive pulmonary disease: Qualified Code: J44.9 - Chronic obstructive pulmonary disease, unspecified COPD type (6) Chest pain: Qualified Code: R07.9 - Chest pain, unspecified type (7) Hypertension: Qualified Code: I10 - Essential hypertension (8) Cardiomyopathy: Qualified Code: I42.9 - Cardiomyopathy, unspecified type Flakita [place] Oct 22, 2016 08:14
[2016-10-22 08:17] LABS: BICARBONATE 32.5 MEQ/L (21.0-32.0); POTASSIUM 3.7 MEQ/L (3.5-5.1)
[2016-10-22] MEDS ORDERED: REGADENOSON INJ 0.4 MG/5 ML SYR ONE (09:26)
[2016-10-22] MEDS: FUROSEMIDE 20 MG TAB PO SCH (10:45)
[2016-10-22] MEDS: SODIUM CHLORIDE 0.9% FLUSH 5 ML FLUSH FLUSH SCH (10:45)
--- NOTE | 2016-10-22 11:24 | RADRPT ---
EXAM DATE/TIME: 10/22/2016 08:58 [place] COMPARISON: No previous studies available for comparison. INDICATIONS : Midsternal chest pain radiating to back for 2 days. Cardiac stent, cardiac cath, atrial fibrillation and asthma. Coronary atherosclerosis. Myocardial infarction. DOSE: 30.9 mCi Tc99m Myoview at stress. 11 mCi Tc99m Myoview at rest. 0.4 mg Lexiscan STRESS SYMPTOMS: Dyspnea and warm feeling. EJECTION FRACTION: 31% MEDICAL HISTORY : Hypertension. Chronic obstructive pulmonary disease. SURGICAL HISTORY : Bilateral knee surgery, left kidney removed and stomach surgery. ENCOUNTER: Initial ACUITY: 2 days PAIN SCALE: 3/10 LOCATION: Midsternal chest TECHNIQUE: The patient underwent pharmacologic stress with infusion of prescribed dose. Continuous ECG tracing was monitored during stress. Gated SPECT imaging was performed after stress and conventional SPECT i maging was performed at rest. The examination was performed on a SPECT/CT scanner, both attenuation and non-corrected datasets were reviewed. FINDINGS: DISTRIBUTION: The maximum perfused segment at stress is in the septal wall. PERFUSION STUDY: There is a small size marked severity fixed defect directly at the apex with akinesia. GATED STUDY: Akinesia of the apex with markedly decreased ejection fraction of 31%. No dyskinesia is seen. CONCLUSION: 1. Small size marked severity fixed defect directly the apex. No reversible ischemic segments are andrea ntified 2. Severe global hypokinesis with 31% ejection fraction and akinesia of the apex RISK CATEGORY: High (>3% Annual Mortality Rate) Spencer Castorena MD on October 22, 2016 at 11:17 Board Certified Radiologist. This report was verified electronically.
--- NOTE | 2016-10-22 12:04 | PD.CARD.PN ---
Subjective Subjective Remarks no overnight events No complaints Ambulated this am without difficulty MPI results noted Objective Medications Current Medications Medications (Trade) Dose Ordered Sig/Castro Route Start Time Stop Time Status Last Admin (NS Flush) 2 ml UNSCH PRN FLUSH 10/20/16 15:30 (NS Flush) 2 ml BID FLUSH 10/20/16 21:00 10/22/16 10:45 (Tylenol) 650 mg Q4H PRN PO 10/20/16 15:30 (Zofran Inj) 4 mg Q6H PRN IVP 10/20/16 15:30 10/21/16 00:34 (Narcan Inj) 0.4 mg UNSCH PRN IV 10/20/16 15:30 (Norvasc) 5 mg HS PO 10/20/16 21:00 10/21/16 22:43 (Ecotrin Ec) 81 mg HS PO 10/20/16 21:00 10/21/16 22:43 (Tenormin) 50 mg HS PO 10/20/16 21:00 10/21/16 22:43 (Vitamin D3) 1,000 units HS PO 10/20/16 21:00 10/21/16 22:43 (Valium) 5 mg HS PRN PO 10/20/16 21:00 10/21/16 22:43 (Proscar) 5 mg HS PO 10/20/16 21:00 10/21/16 22:43 (Lasix) 40 mg DAILY PO 10/21/16 09:00 10/22/16 10:45 (Prinivil) 20 mg HS PO 10/20/16 21:00 10/21/16 22:44 (Protonix) 20 mg HS PO 10/20/16 21:00 10/21/16 22:43 (Phenergan) 25 mg Q6HR PRN PO 10/20/16 15:30 10/21/16 17:03 (Flomax) 0.4 mg HS PO 10/20/16 21:00 10/21/16 22:43 (Hytrin) 5 mg HS PO 10/20/16 21:00 10/21/16 22:44 (Coumadin) 5 mg DAILY@1600 PO 10/21/16 16:00 10/21/16 17:04 Pravastatin Sodium 40 mg 40 mg HS PO 10/20/16 21:00 10/21/16 22:44 (Coumadin Consult Pharmacy) 0 ml @ 0 mls/hr UNSCH OTHER 10/20/16 15:30 ([place] 5-325 Mg) 1 tab Q4H PRN PO 10/20/16 19:15 (Morphine Inj) 2 mg Q3H PRN IV PUSH 10/20/16 19:15 10/20/16 22:54 ([place] 5-325 Mg) 2 tab Q4H PRN PO 10/21/16 15:30 10/21/16 17:36 (Imdur) 30 mg DAILY@07 PO 10/22/16 07:00 10/22/16 08:11 Vital Signs / I&O Vital Signs Date Time Temp Pulse Resp B/P Pulse Ox O2 Delivery O2 Flow Rate FiO2 10/22/16 11:05 96.5 72 18 117/77 94 10/22/16 08:18 96.8 80 18 132/97 97 10/22/16 04:10 98.4 68 21 153/89 97 10/21/16 20:23 98.7 78 18 136/98 98 10/21/16 18:36 20 10/21/16 16:00 96.1 69 18 120/73 99 10/21/16 14:54 96 Nasal Cannula 2.00 10/21/16 12:00 96.0 66 16 117/82 99 I/O 10/21/16 10/21/16 10/21/16 10/22/16 10/22/16 10/22/16 07:00 15:00 23:00 07:00 15:00 23:00 Intake Total 800 ml Output Total 300 ml 0 ml 300 ml Balance -300 ml 800 ml -300 ml Intake Oral 800 ml Output Urine Total 300 ml 300 ml Stool Total 0 ml # Voids 2 Physical Exam GENERAL: Well-nourished, well-developed patient. SKIN: Warm and dry. HEAD: Normocephalic. EYES: No scleral icterus. No injection or drainage. NECK: Supple, trachea midline. No JVD or lymphadenopathy. CARDIOVASCULAR: Regular rate and rhythm without murmurs, gallops, or rubs. RESPIRATORY: Breath sounds equal bilaterally. No accessory muscle use. GASTROINTESTINAL: Abdomen soft, non-tender, nondistended. EXTREMITIES: No cyanosis, or edema. NEUROLOGICAL: Awake, alert, and oriented x 3. Non-focal. Laboratory Laboratory Tests Test 10/22/16 07:05 Prothrombin Time 22.5 SEC Prothromb Time International 2.0 RATIO Ratio Sodium Level 146 MEQ/L Potassium Level 3.7 MEQ/L Chloride Level 107 MEQ/L Carbon Dioxide Level 32.5 MEQ/L Anion Gap 7 MEQ/L Blood Urea Nitrogen 22 MG/DL Creatinine 1.81 MG/DL Estimat Glomerular Filtration 37 ML/MIN Rate Random Glucose 75 MG/DL Calcium Level 8.3 MG/DL Imaging Last Impressions Myocardial Perfusion Scan Nuc Med 10/22/16 0000 Signed Impressions: Service Date/Time: Saturday, October 22, 2016 08:58 - CONCLUSION: 1. Small size marked severity fixed defect directly the apex. No reversible ischemic segments are identified 2. Severe global hypokinesis with 31%% ejection fraction and akinesia of the apex RISK CATEGORY: High (>3%% Annual Mortality Rate) Spencer Castorena MD Chest X-Ray 10/20/16 1228 Signed Impressions: Service Date/Time: Thursday, October 20, 2016 12:48 - CONCLUSION: Compensated cardiomegaly otherwise negative. Ezio Martinez MD FACR Assessment and Plan Problem List: (1) Coronary artery disease Assessment and Plan: No signs of ischemia in the MPI. Chest pain likely due diastolic heart failure Continue aggressive medical management for CAD Stable to be d/c home from CV standpoint F/u with outpatient cardiology at [facility] sign off (2) Atrial fibrillation (3) Hyperlipidemia (4) Chronic obstructive pulmonary disease (5) Hypertension (6) Chronic kidney disease, stage III (moderate) Problem Qualifiers (1) Coronary artery disease: Qualified Code: I25.10 - Coronary artery disease involving [place] coronary artery of [place] heart without angina pectoris (2) Atrial fibrillation: Qualified Code: I48.2 - Chronic atrial fibrillation (3) Hyperlipidemia: Qualified Code: E78.5 - Hyperlipidemia, unspecified hyperlipidemia type (4) Chronic obstructive pulmonary disease: Qualified Code: J44.9 - Chronic obstructive pulmonary disease, unspecified COPD type (5) Hypertension: Qualified Code: I10 - Essential hypertension Trenton Woo MD Oct 22, 2016 12:04
[2016-10-22] MEDS: WARFARIN SOD 5 MG TAB PO SCH (16:12)
--- NOTE | 2016-10-22 18:23 | HHI.FF ---
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 My clinical findings support the need for the requested home health care services because: Patient has SOB Deconditioned w/ increased weakness I certify that my clinical findings support that this patient is homebound because: Poor cardiac reserve Flakita Mesa Oct 22, 2016 18:23
[2016-10-22] MEDS ORDERED: ISOS30TA3 PO (18:24)
--- NOTE | 2016-10-22 18:25 | HHI.DCPOC ---
Discharge Care Plan Diagnosis: (1) Chest pain (2) Atrial fibrillation (3) Cardiomyopathy Your Health Problems Are: Chest Pain Shortness of Breath Goals to Promote Your Health * To prevent worsening of your condition and complications * To maintain your health at the optimal level Directions to Meet Your Goals Take your medications as prescribed Follow your dietary instruction Follow activity as directed Keep your appointments as scheduled Take your immunizations and boosters as scheduled If your symptoms worsen call your PCP, if no PCP go to Urgent Care Center or Emergency Room Smoking is Dangerous to Your Health. Avoid second hand smoke Call the 24-hour hour crisis hotline for domestic abuse at Flakita Mesa Oct 22, 2016 18:25
== END 2016-10-22 22:10 | disposition home or self-care (01) | DRG 292 ==
LOC: NEPC 10:58 → NEDA 15:12 → NEPGCP 18:50 → OBSVTOIN 10-22 08:15
PROVIDERS: ADMIT Specialist; ATTEND Specialist
DX: I50.33 Acute on chronic diastolic (congestive) heart failure (principal); N17.9 Acute kidney failure, unspecified; I48.91 Unspecified atrial fibrillation; I42.9 Cardiomyopathy, unspecified; J44.9 Chronic obstructive pulmonary disease, unspecified; I12.9 Hypertensive chronic kidney disease with stage 1 through stage 4 chronic kidney disease, or unspecified chronic kidney disease; N18.3 Chronic kidney disease, stage 3 (moderate); Z90.5 Acquired absence of kidney; I25.10 Atherosclerotic heart disease of native coronary artery without angina pectoris; Z95.5 Presence of coronary angioplasty implant and graft; E78.5 Hyperlipidemia, unspecified; Z79.01 Long term (current) use of anticoagulants; Z79.82 Long term (current) use of aspirin; G47.33 Obstructive sleep apnea (adult) (pediatric); J45.909 Unspecified asthma, uncomplicated; M19.90 Unspecified osteoarthritis, unspecified site; K21.9 Gastro-esophageal reflux disease without esophagitis; E66.9 Obesity, unspecified; Z68.35 Body mass index [BMI] 35.0-35.9, adult; N40.0 Benign prostatic hyperplasia without lower urinary tract symptoms
CPT/HCPCS: 71010; 78452; 80048; 82550; 83880; 84484; 85025; 85610; 85730; 93005; 93017; 93306; 94664; 96374; A9502; G0378; G8987-GP; G8988-GP; J1940; J2270; J2405; J2785; Q0169

== ENCOUNTER → 2017-12-08 | Outpatient (CLI) | payer MEDICARE, BC ==
[~2017-12-08] MED LIST changes: -ALBU6.7H INH; -AMLO2.5T PO; +AMLO5TAB2 PO; +ASPI81TA81 PO; -ASPI81TA82 PO; -ATEN-102 PO; +ATEN50TA PO; +CHOL10008 PO; -COUM7.5T PO; -CYCL-36 PO; -DIAZ5 PO; +DIAZ5TAB PO; -FINA5TAB77 PO; +FURO1TAB62 PO; +HYDR-3111 PO; +ISOS30TA3 PO; -LISI-357 PO; +LISI-519 PO; +NITR1SUB3 SL; +OMEP20TA93 PO; +PROM25TA5 PO; +PROS5TAB PO; +TAMS5CAP PO; -TERA5 PO; +TERA5CAP3 PO; -TEST-25 IM; +TEST-55 IM; +WARF-21 PO; +WARF-23 PO
[2017-12-08 14:13] LABS: COMPLEMENT C3 107 MG/DL (90-180); COMPLEMENT C4 25 MG/DL (10-40)
[2017-12-08 14:52] LABS: KAPPA LAMBDA RATIO 1.75 (1.57-3.93)
[2017-12-08 15:55] LABS: CREATININE 24 HOUR, URINE 1.75 GM/24HR (0.63-2.50)
[2017-12-12 17:37] LABS: ALB/GLOB RATIO (SPE) 1.29 (1.39-2.23)
== END ==
LOC: PLAB 08:28
PROVIDERS: ATTEND Physician Assistant
DX: I12.9 Hypertensive chronic kidney disease with stage 1 through stage 4 chronic kidney disease, or unspecified chronic kidney disease (principal); N18.3 Chronic kidney disease, stage 3 (moderate); R80.9 Proteinuria, unspecified
CPT/HCPCS: 36415; 82570; 82784; 83883; 84156; 84157; 84165; 86160; 86334; 86335; 86803